=== PATIENT | female | born 1960 | race Caucasian/White ===

== ENCOUNTER 2019-08-21 13:00 | Day surgery (SDC) | payer BC ==
[~2019-08-21] VITALS: Ht 167.6 cm; Wt 73.5 kg
== END 2019-08-21 18:00 | disposition home or self-care (01) ==
LOC: OPS 13:00 → DS 13:11 → OPS 14:15
DX: R11.2 Nausea with vomiting, unspecified (principal); R15.9 Full incontinence of feces; Z53.09 Procedure and treatment not carried out because of other contraindication
CPT/HCPCS: J2405; J3010; J7121

== ENCOUNTER 2019-10-03 08:24 | Day surgery (SDC) | payer BC ==
[~2019-10-03] VITALS: Ht 167.6 cm; Wt 73.5 kg
[~2019-10-03 08:24] MED LIST: ASPIRIN EC81 MG PO; DAILY MULTIPLE1 EACH PO; LEVOTHYROXINE100 MCG PO; NORCO 5-325 TA1 EACH PO; OMEPRAZOLE20 MG PO; PROZAC20 MG PO; VALACYCLOVIR1000 MG PO
--- NOTE | 2019-10-03 09:53 | NUR ---
0915 AND 0945 PT HAS DENIED ANY NEEDS. IV PATENT. HAS BEEN UPDATED.
--- NOTE | 2019-10-03 11:06 | NUR ---
10/03/19 1106 Chuy,Ramona 1100 PT ARRIVED TO PACU ON 2L VIA NC, PT WAKES EASILY TO TACTILE STIMULI AND IS REORIENTED TO PACU. PT FALLS EASILY BACK TO SLEEP. VSS. RESP EVEN AND UNLABORED. 1106 PT PASSING GAS/AIR. O2 TURNED OFF.
--- NOTE | 2019-10-04 21:07 | OR ---
[facility] [address], [place] [address] Signed DATE OF OPERATION: 10/03/2019 SURGEON: Christy Anthony MD PREOPERATIVE DIAGNOSES: 1. Longstanding abdominal pain including epigastric pain and clinical reflux symptoms. 2. Episodic bright blood per rectum. POSTOPERATIVE DIAGNOSES: 1. Hiatal hernia without obvious esophagitis. Mild antral gastritis. 2. Small polyps x3 of colon. PROCEDURES: 1. Esophagogastroduodenoscopy with biopsy. 2. Total colonoscopy to cecum with cold morcellation polypectomy x2 and cold snare polypectomy x1. ANESTHESIA: Intravenous sedation, fentanyl 150 mcg, Versed 6 mg total. INDICATION: A 59-year-old white woman, a patient of Ryan Torres, who has had longstanding abdominal pain without specific diagnosis in the past. She has undergone cholecystectomy in the past by Dr. Krzysztof Will in 2014. She has had central upper abdominal pain, which feels like a "empty stomach." She notes that food helps in the sensation. She has had no weight loss. She does have family history of colitis in her father who required colectomy, most likely ulcerative colitis. She has had episodic bright red blood per rectum without associated pain. She is admitted to undergo upper endoscopy and colonoscopy, understanding the risks of bleeding, infection, and perforation. FINDINGS: Upper endoscopy showed mild antral gastritis and hiatal hernia, but no sign of esophagitis. CLOtest was -15 minutes. Colonoscopy showed a well-prepped colon. There were two small polyps of the left colon, most likely hyperplastic, both excised and a somewhat larger polyp in the sigmoid, which was excised with cold snare technique. There were no other findings of concern and certainly no evidence of colitis. Electronically Signed By: CHRISTY ANTHONY MD 10/04/19 2107 PATIENT NAME: OWEN SMITH OPERATIVE REPORT DATE OF : 64 REPORT #: [id number] PHYSICIAN: CHRISTY ANTHONY MD PCP: RYAN TORRES REPORT IS CONFIDENTIAL AND NOT TO BE RELEASED WITHOUT AUTHORIZATION [facility] [address], [place] [address] Signed DESCRIPTION OF PROCEDURE: The patient was brought to the endoscopy suite and given topical Hurricaine spray hypopharyngeal anesthesia and placed in lateral decubitus position. She was given intravenous sedation to the point of slurred speech and nystagmus with full cardiopulmonary monitoring. The Olympus video upper endoscope was passed in the hypopharynx after placement of a bite block. The vocal cords appeared normal. Scope was advanced to the esophagus. Throughout its length, it was normal. There was some reflux of bile noted at that time. The scope was passed to the stomach, which was insufflated with air. Rugal folds appeared normal. There was no sign of antral ulcer, but there was mild gastritis. Pylorus was normal. Scope was passed through into the duodenum, which was normal. Biopsies were taken of the duodenum to assess for celiac disease. The scope was withdrawn and biopsies of the antrum were undertaken. Retroflexed view of the stomach showed a moderate-sized hiatal hernia. The scope was straightened, withdrawn, and biopsies then taken of the distal esophagus and withdrawn to the mid portion allowing for biopsies. The scope was then removed with no other findings of concern. Additional sedation was given and digital rectal examination performed, which was normal. An Olympus video colonoscope was passed in the rectum and manipulated throughout the colon, ultimately intubating the cecum itself. The ileocecal valve and appendiceal orifice were normal. Scope was withdrawn from that point. Examination showed no sign of abnormality into the proximal descending colon where 2 small hyperplastic-appearing polyps were noted. They were both excised with cold morcellation technique. The scope was further withdrawn and in the sigmoid was a somewhat larger but less than a centimeter polyp. This was excised with cold snare technique. Further withdrawal of scope allowed for retroflexed view. Retroflexed view showed only hypertrophied anal papilla. No sign of other abnormality. There is certainly no sign of colitis. The scope was removed. The patient was taken to recovery room in good condition. CONCLUDING DIAGNOSES: 1. Antral gastritis and hiatal hernia. No evidence of esophagitis. CLOtest thus far negative. 2. Normal-appearing colon except for two hyperplastic and possibly three hyperplastic polyps, all excised. PLAN: Recommend repeat colonoscopy in 5 years if adenoma is identified, 10 if not. As regard to upper symptoms, would have her continue with Prilosec, but consideration might be made for Carafate 1 g p.o. q.i.d. as a trial. Electronically Signed By: CHRISTY ANTHONY MD 10/04/19 7594 PATIENT NAME: OWEN SMITH OPERATIVE REPORT DATE OF : 64 REPORT #: [id number] PHYSICIAN: CHRISTY ANTHONY MD PCP: RYAN TORRES REPORT IS CONFIDENTIAL AND NOT TO BE RELEASED WITHOUT AUTHORIZATION [address] [address] Signed Christy Anthony MD JM/MODL /[id number] cc: LETTY Vega Copies: RYAN TORRES ~ Electronically Signed By: CHRISTY ANTHONY MD 10/04/19 2107 PATIENT NAME: OWEN SIMTH ANN OPERATIVE REPORT DATE OF : 64 REPORT #: [id number] PHYSICIAN: CHRISTY ANTHONY MD PCP: RYAN TORRES REPORT IS CONFIDENTIAL AND NOT TO BE RELEASED WITHOUT AUTHORIZATION
--- NOTE | 2019-10-07 16:32 | PATH ---
[facility] [address], [place] [address] Signed SPECIMEN(S): A DUODENAL BIOPSY SPECIMEN(S): B ANTRUM BIOPSY SPECIMEN(S): C DISTAL ESOPHAGEAL BIOPSY SPECIMEN(S): D MID ESOPHAGEAL BIOPSY SPECIMEN(S): E DESCENDING COLON POLYP SPECIMEN(S): F SIGMOID POLYP SPECIMEN SOURCE: A. DUODENAL BIOPSY B. ANTRUM BIOPSY C. DISTAL ESOPHAGEAL BIOPSY D. MID ESOPHAGEAL BIOPSY E. DESCENDING COLON POLYP F. SIGMOID POLYP CLINICAL HISTORY: Rectal bleed, abdominal pain, antral esophagitis, polyps x 3. MICROSCOPIC DESCRIPTION: Histologic sections of all submitted blocks are examined by light microscopy. These findings, together with the gross examination, support the pathologic diagnosis. FINAL PATHOLOGIC DIAGNOSIS: A. Duodenum, biopsy: - Duodenal mucosa with mild increased lamina propria chronic inflammation. - Negative for Helicobacter organisms on HE stain. - Negative for dysplasia or malignancy. B. Stomach, antrum/pylorus, biopsy: - Antral mucosa with mild chronic, inactive gastritis with superimposed reactive gastropathy. - Negative for Helicobacter organisms on HE stain. - Negative for dysplasia or malignancy. C. Esophagus, distal, biopsy: - Squamous mucosa with changes suggestive of mild reflux esophagitis. - Negative for intestinal metaplasia, dysplasia, or malignancy. D. Esophagus, mid, biopsy: - Squamous mucosa with minimal reactive changes, suggestive of mild reflux esophagitis. - Negative for intestinal metaplasia, dysplasia, or malignancy. E. Colon, descending, polyp, polypectomy: PATIENT NAME: OWEN SMITH ANN PATHOLOGY DATE OF : 64 REPORT #: [id number] PHYSICIAN: FUENTES CAMEJO PCP: RYAN OLIVEIRA REPORT IS CONFIDENTIAL AND NOT TO BE RELEASED WITHOUT AUTHORIZATION [facility] [address], [place] [address] Signed - Fragments of hyperplastic polyp(s). - Negative for dysplasia or malignancy. F. Colon, sigmoid, polyp, polypectomy: - Fragments of hyperplastic polyp(s). - Negative for dysplasia or malignancy. NAL:cml:C2NR GROSS DESCRIPTION: Six specimens are received in six containers, labeled "JI." A. The specimen, labeled "1 (duodenum biopsy per requisition form)," is received in formalin and consists of two lyles soft tissue fragments that measure up to 0.3 cm in greatest dimension. The specimen is entirely submitted in cassette (A1). B. The specimen, labeled "2 (antrum/pylorus biopsy per requisition form)," is received in formalin and consists of two lyles soft tissue fragments that measure up to 0.3 cm in greatest dimension. The specimen is entirely submitted in cassette (B1). C. The specimen, labeled "3 (esophagus biopsy per requisition form)," is received in formalin and consists of a 0.5 x 0.3 x 0.1 cm soft, lyles-white tissue fragment. The specimen is entirely submitted in cassette (C1). D. The specimen, labeled "4 (esophagus biopsy per requisition form)," is received in formalin and consists of two lyles soft tissue fragments that measure up to 0.4 cm in greatest dimension. The specimen is entirely submitted in cassette (D1). E. The specimen, labeled "5 (left descending polypectomy per requisition form)," is received in formalin and consists of two lyles soft tissue fragments that measure up to 0.2 cm in greatest dimension. The specimen is entirely submitted in cassette (E1). F. The specimen, labeled "6 (sigmoid polypectomy per requisition form)," is received in formalin and consists of six lyles soft tissue fragments that measure up to 0.3 cm in greatest dimension. The specimen is entirely submitted in cassette (F1). KM (under the direct supervision of a pathologist) The Gross Description was prepared using a voice recognition system. The report was reviewed for accuracy; however, sound-alike word errors, addition and/or deletions may occur. If there is any question about this report, please contact Client Services. PERFORMING LABORATORY: PATIENT NAME: OWEN SMITH PATHOLOGY DATE OF : 64 REPORT #: [id number] PHYSICIAN: FUENTES CAMEJO PCP: RYAN OLIVEIRA REPORT IS CONFIDENTIAL AND NOT TO BE RELEASED WITHOUT AUTHORIZATION [facility] [address], [place] [address] Signed The technical component was performed by [employer], [address] [place] [id number] (Accreditation Specialist: Cristina Blanc MD; CLIA# [id number]). [facility], [address] [address] (CLIA# [id number]). Diagnostician: Jenny Jackson MD Pathologist Electronically Signed 10/07/2019 Copies: ~ PATIENT NAME: OWEN SMITH PATHOLOGY DATE OF : 64 REPORT #: [id number] PHYSICIAN: FUENTES CAMEJO PCP: RYAN OLIVEIRA REPORT IS CONFIDENTIAL AND NOT TO BE RELEASED WITHOUT AUTHORIZATION
== END 2019-10-03 11:44 | disposition home or self-care (01) ==
LOC: OPS 08:24 → DS 08:24 → OPS 09:30 → DS 14:00
PROVIDERS: Surgery
PROC: 0DB38ZX Excision of Lower Esophagus, Via Natural or Artificial Opening Endoscopic, Diagnostic (ICD-10-PCS; 2019-10-03)
PROC: 0DB28ZX Excision of Middle Esophagus, Via Natural or Artificial Opening Endoscopic, Diagnostic (ICD-10-PCS; 2019-10-03)
PROC: 0DBM8ZX Excision of Descending Colon, Via Natural or Artificial Opening Endoscopic, Diagnostic (ICD-10-PCS; 2019-10-03)
PROC: 0DBN8ZX Excision of Sigmoid Colon, Via Natural or Artificial Opening Endoscopic, Diagnostic (ICD-10-PCS; 2019-10-03)
PROC: 0DB98ZX Excision of Duodenum, Via Natural or Artificial Opening Endoscopic, Diagnostic (ICD-10-PCS; principal; 2019-10-03 09:30)
PROC: 0DB78ZX Excision of Stomach, Pylorus, Via Natural or Artificial Opening Endoscopic, Diagnostic (ICD-10-PCS; 2019-10-03 09:30)
DX: K63.5 Polyp of colon (principal); K29.51 Unspecified chronic gastritis with bleeding; K29.81 Duodenitis with bleeding; K44.9 Diaphragmatic hernia without obstruction or gangrene; E03.9 Hypothyroidism, unspecified; K21.9 Gastro-esophageal reflux disease without esophagitis; Z79.899 Other long term (current) drug therapy; Z90.49 Acquired absence of other specified parts of digestive tract
CPT/HCPCS: 99153; G0500; J2250; J3010; J7121